=== PATIENT | male | born 1970 | race Caucasian/White ===

== ENCOUNTER → 2016-10-11 | Day surgery (SDC) | payer MEDICARE ==
[2016-10-10 12:06] LABS: Urine RBC None Seen /hpf (0 - 3)
[2016-10-10 12:31] LABS: Basophils # (auto) 0 uL; Basophils % (auto) 0.2 % (0.0-2.0); Eosinophils # (auto) 0.1 uL; Eosinophils % (auto) 0.7 % (0.0-7.0); Hematocrit 41.5 % (41.0-53.0); Hemoglobin 13.8 g/dL (13.5-17.5); Lymphocytes # (auto) 1.5 uL; Lymphocytes % (auto) 15.7 % (10.0-50.0); Mean Corpuscular Hemoglobin 28.7 pg (28.0-32.0); Mean Corpuscular Hgb Conc. 33.3 g/dL (32.0-36.0); Mean Corpuscular Volume 86.1 fL (80.0-100.0); Mean Platelet Volume 9.4 fL (7.4-10.4); Monocytes # (auto) 0.6 uL; Monocytes % (auto) 6.5 % (0.0-12.0); Neutrophils # (auto) 7.4 uL; Neutrophils % (auto) 76.9 % (37.0-80.0); Platelet Count (auto) 349 10^3/uL (140-450); Red Cell Distribution Width 15.8 % (11.6-16.0); White Blood Cell 9.6 10^3/uL (4.4-10.8)
[2016-10-10 12:42] LABS: INR 1.01 (0.9-1.15); Partial Thromboplastin Time 29.4 sec (22.64-33.71); Prothrombin Time 10.9 sec (9.37-12.3)
[2016-10-10 12:44] LABS: Urine Bilirubin Negative (Negative); Urine Blood Negative /uL (Negative); Urine Color Yellow (Yellow); Urine Glucose Normal (Normal); Urine Ketone Negative (Negative); Urine Mucus FEW (None Seen); Urine Nitrite Negative (Negative); Urine Squamous Epithelial Cell FEW /hpf (<5); Urine pH 5.5 (5.0-8.0)
[2016-10-10 12:54] LABS: Albumin 3.6 g/dL (3.4-5.0); Bilirubin, Total 0.7 mg/dL (0.2-1.0); Calcium 8.7 mg/dL (8.5-10.1); Potassium 3.8 mmol/L (3.5-5.1); Total Protein 7.4 g/dL (6.4-8.2)
[~2016-10-11] MED LIST: BUPIVACAINE 0.75% INJ 10ML MPV SDV IJ ONE; BUPIVACAINE W/ EPINEPH 0.25% INJ 50ML MDV ONE; CARI-277; FOLI5CAP; HYDR8TAB; HYDROmorphone HCL 2 MG/ML VL ONE; MIDAZOLAM HCL 1MG/1ML-2 ML VIAL ONE; NAPR-476; ONDANSETRON HCL 4 MG/2 ML VIAL IV ONE; PROPOFOL 10 MG/ML 20 ML IV ONE; ceFAZolin 1GM/50ML D5W 50 ML IV ONE; ePHEDrine SULFATE 50 MG/ML AMP IV PRN; fentaNYL CITRATE 100 MCG/2 ML VL ONE; hydrALAZINE HCL 20 MG/ML VL IV PRN; methylPREDNISolone ACETATE 80 MG/ML VL ONE
[2016-10-11] MEDS: HYDROmorphone HCL 2 MG/ML VL IV PRN ×2 (11:35→11:45)
[2016-10-11 12:15] VITALS: BP 108/70
== END | disposition home or self-care (01) ==
LOC: SUR 08:15
PROVIDERS: ATTEND Podiatrist Foot & Ankle Surgery
DX: S93.492A Sprain of other ligament of left ankle, initial encounter (principal); X58.XXXA Exposure to other specified factors, initial encounter; M19.072 Primary osteoarthritis, left ankle and foot; I20.9 Angina pectoris, unspecified; F17.200 Nicotine dependence, unspecified, uncomplicated; B19.10 Unspecified viral hepatitis B without hepatic coma; M06.9 Rheumatoid arthritis, unspecified; I10 Essential (primary) hypertension; E11.9 Type 2 diabetes mellitus without complications; Y93.9 Activity, unspecified; Y92.9 Unspecified place or not applicable; Y99.9 Unspecified external cause status
CPT/HCPCS: 29895; 36415; 80053; 81001; 85025; 85610; 85730; J0690; J1040; J1170; J2250; J2704; J3010; J3490; V2790